=== PATIENT | female | born 1955 | race Caucasian/White ===

== ENCOUNTER 2022-08-18 09:57 | Emergency (ER) | payer MEDICARE, OTHER ==
[~2022-08-18] VITALS: Ht 162.6 cm; Wt 67.5 kg
[2022-08-18 10:41] LABS: Basophils # (auto) 0 10 ^3/uL (0-0.2); Basophils % (auto) 0.6 % (0.0-2.0); Eosinophils # (auto) 0.1 10 ^3/uL (0-0.8); Eosinophils % (auto) 1.5 % (0.0-7.0); Hematocrit 42.9 % (36.0-46.0); Hemoglobin 14.8 g/dL (12.2-16.2); Lymphocytes # (auto) 1.4 10 ^3/uL (0.4-5.4); Lymphocytes % (auto) 28.4 % (10.0-50.0); Mean Corpuscular Hemoglobin 33.1 pg (28.0-32.0); Mean Corpuscular Hgb Conc. 34.6 g/dL (32.0-36.0); Mean Corpuscular Volume 95.8 fL (80.0-100.0); Monocytes # (auto) 0.4 10 ^3/uL (0-1.3); Monocytes % (auto) 9.1 % (0.0-12.0); Neutrophils % (auto) 60.4 % (37.0-80.0); Nucleated Red Blood Cells % 0.1 %; Red Blood Cells 4.48 10^6/uL (4.0-5.20); Red Cell Distribution Width 12.7 % (11.8-14.3); White Blood Cell 4.9 10^3/uL (4.4-10.8)
[2022-08-18 10:55] LABS: Potassium 4.9 mmol/L (3.5-5.1)
[2022-08-18 10:59] LABS: BUN/Creatinine Ratio 16.2; Bilirubin, Total 0.8 mg/dL (0.2-1.0); Total Protein 7.5 g/dL (6.4-8.2)
[2022-08-18] MEDS ORDERED: DICL50TA2 PO (13:44)
[2022-08-18] MEDS ORDERED: CYCL-837 PO (13:44)
[2022-08-18 14:11] VITALS: BP 163/68
== END 2022-08-18 14:20 | disposition home or self-care (01) ==
LOC: ER 09:57
DX: R51.9 Headache, unspecified (principal); H53.8 Other visual disturbances; Q04.8 Other specified congenital malformations of brain; I25.2 Old myocardial infarction; E78.5 Hyperlipidemia, unspecified
CPT/HCPCS: 36415; 70450; 80053; 83735; 85025; 93005